=== PATIENT | male | born 1985 | race Caucasian/White ===

== ENCOUNTER 2019-05-04 12:03 | Emergency (ER) | payer OTHER ==
[~2019-05-04] VITALS: Ht 185.4 cm; Wt 106.8 kg
[~2019-05-04 12:03] MED LIST: CLARITIN 1010 MG/TAB PO; NKA; PERCOCET 5/321 UDTAB PO
[2019-05-04 12:08] VITALS: BP 118/69; TEMP 97.2
[2019-05-04] MEDS ORDERED: SINGULAIR 110 MG/TAB PO (12:44)
[2019-05-04] MEDS ORDERED: ZYRTEC 10MG10 MG PO (12:46)
[2019-05-04] MEDS ORDERED: CEPHALEXIN500 M1 PO (12:51)
[2019-05-04 13:30] VITALS: PULSE 82
== END 2019-05-04 13:32 | disposition home or self-care (01) ==
LOC: COL.ER 12:03
DX: S61.012A Laceration without foreign body of left thumb without damage to nail, initial encounter (principal); Z88.2 Allergy status to sulfonamides; Z23 Encounter for immunization; W23.0XXA Caught, crushed, jammed, or pinched between moving objects, initial encounter; Y92.59 Other trade areas as the place of occurrence of the external cause